=== PATIENT | male | born 1960 | race Caucasian/White ===

== ENCOUNTER 2021-04-05 00:10 | Emergency (ER) | payer OTHER ==
[~2021-04-05] VITALS: Ht 175.3 cm; Wt 117.9 kg
[2021-04-05 00:49] LABS: HEMOGLOBIN 17.7 gm/dl (14.0-17.5); RED BLOOD COUNT 5.68 M/UL (4.20-5.50); WHITE BLOOD COUNT 11.8 K/UL (4.5-11.0)
[2021-04-05 01:08] LABS: BUN/CREATININE RATIO 14 (0-10)
[2021-04-05] MEDS ORDERED: CARDIZEM LA180 MG PO (03:13)
== END 2021-04-05 03:35 | disposition home or self-care (01) ==
LOC: ER1 00:10
PROVIDERS: Family Medicine
DX: I48.91 Unspecified atrial fibrillation (principal); T21.22XA Burn of second degree of abdominal wall, initial encounter; I10 Essential (primary) hypertension; F17.200 Nicotine dependence, unspecified, uncomplicated; X08.8XXA Exposure to other specified smoke, fire and flames, initial encounter
CPT/HCPCS: 71045; 80053; 82550; 82553; 83874; 84484; 85025; 93005; 96374; 99285

== ENCOUNTER → 2021-04-22 | Outpatient (CLI) | payer OTHER ==
[~2021-04-22] MED LIST: CARDIZEM LA180 MG PO
== END ==
LOC: HEART 5 10:00
DX: I48.0 Paroxysmal atrial fibrillation (principal)
CPT/HCPCS: 93306

== ENCOUNTER → 2021-04-29 | Outpatient (CLI) | payer OTHER | LOC: KOH-I 08:27 | DX: F17.210 Nicotine dependence, cigarettes, uncomplicated (principal); R79.89 Other specified abnormal findings of blood chemistry | CPT/HCPCS: 71271 ==

== ENCOUNTER 2021-09-08 01:19 | Emergency (ER) | payer OTHER ==
[2021-09-08 02:02] LABS: HEMOGLOBIN 16.7 gm/dl (14.0-17.5); RED BLOOD COUNT 5.41 M/UL (4.20-5.50); WHITE BLOOD COUNT 8.2 K/UL (4.5-11.0)
[2021-09-08 02:33] LABS: BUN/CREATININE RATIO 21 (0-10)
[2021-09-08] MEDS ORDERED: ASPIRIN CHEWABL81 MG PO (04:35)
== END 2021-09-08 04:45 | disposition home or self-care (01) ==
LOC: ER1 01:19
PROVIDERS: Family Medicine
DX: R55 Syncope and collapse (principal); I48.91 Unspecified atrial fibrillation
CPT/HCPCS: 70450; 71045; 80053; 82550; 82553; 83874; 84484; 85025; 93005; 99284